=== PATIENT | female | born 1975 | race Caucasian/White ===

== ENCOUNTER 2016-09-04 19:43 | Emergency (ER) | payer BC ==
[2016-09-04] MEDS ORDERED: Sodium Chloride 0.9% 1,000 ML IV ONE (20:48)
[2016-09-04 21:33] LABS: CHLORIDE,CL 107 mmol/L (98-110); SODIUM,NA 138 mmol/L (136-146)
[2016-09-04] MEDS ORDERED: Iopamidol 755 MG/ML 50 ML Bottle IV STA (22:40)
[2016-09-04] MEDS ORDERED: Ketorolac 30 MG/ML SDV IVPUSH ONE (23:22)
--- NOTE | 2016-09-04 23:24 | EDM.PDOC ---
ED HPI GENERAL MEDICAL PROBLEM - General Chief Complaint: Flank Pain Stated Complaint: PT RT SIDE HURTING Time Seen by Provider: 09/04/16 20:45 Source of Information: Reports: Patient History Limitations: Reports: No limitations - History of Present Illness INITIAL COMMENTS - FREE TEXT/NARRATIVE: History of present illness: [41-year-old female presenting with complaints of right-sided upper quadrant pain. Patient is worse when she coughs there is no point tenderness consistent with costochondritis. Patient also indicates that she had been working out and had heard and felt a pop and now it has been sporadic intermittent pain. Patient comes in today to be evaluated and worked up secondary to concerns of having something wrong that will cause her problems do to a planned elective procedure coming up in the forthcoming week] Review of systems: As per history of present illness and below otherwise all systems reviewed and negative. Past medical history: As per history of present illness and as reviewed below otherwise noncontributory. Surgical history: As per history of present illness and as reviewed below otherwise noncontributory. Social history: No reported history of drug or alcohol abuse. Family history: As per history of present illness and as reviewed below otherwise noncontributory. Physical exam: HEENT: Atraumatic, normocephalic, pupils reactive, negative for conjunctival pallor or scleral icterus, mucous membranes moist, throat clear, neck supple, nontender, trachea midline. Lungs: Clear to auscultation, breath sounds equal bilaterally, chest nontender. Heart: S1S2, regular, negative for clicks, rubs, or JVD. Abdomen: Soft, nondistended, nontender. Negative for masses or hepatosplenomegaly. Negative for costovertebral tenderness. Pelvis: Stable nontender. Genitourinary: Deferred. Rectal: Deferred. Extremities: Atraumatic, negative for cords or calf pain. Neurovascular unremarkable. Neuro: Awake, alert, oriented. Cranial nerves II through XII unremarkable. Cerebellum unremarkable. Motor and sensory unremarkable throughout. Exam nonfocal. Patient able to indicate some deep pain right under her rib by the for her of her liver without feeling any liver enlargement and or firmness Diagnostics: [CBC, CMP, CT of abdomen with contrast] Therapeutics: [IV fluid] Impression: [Atypical abdominal tenderness] Plan: [Followup with primary care provider he may proceed with your elective procedure with the documentation provided to her provider] Definitive disposition and diagnosis as appropriate pending reevaluation and review of above. - Related Data Allergies Allergy/AdvReac Type Severity Reaction Status Date / Time adhesive tape Allergy Rash Verified 09/04/16 20:10 metformin Allergy Other Verified 09/04/16 20:10 metoclopramide HCl Allergy Anxiety Verified 09/04/16 20:10 [From Reglan] Home Meds: Home Meds Cholecalciferol (Vitamin D3) [Vitamin D3] 1 cap PO BID 02/05/15 [History] Levothyroxine 1 tab PO DAILY 02/05/15 [History] Multivitamin [Multivitamins] 1 tab PO BID 02/05/15 [History] Escitalopram [Lexapro] 10 mg PO DAILY 05/28/15 [History] Insulin Lispro [HumaLOG] 1 dose SQ ASDIRECTED 05/28/15 [History] busPIRone [Buspar] 10 mg PO TID 05/28/15 [History] Amitriptyline [Elavil] 50 mg PO BEDTIME 08/09/16 [History] Cimetidine [Tagamet Hb] 1 tab PO BID 08/09/16 [History] Esomeprazole [NexIUM] 1 cap PO DAILY 08/09/16 [History] Fexofenadine [Chantell] 1 tab PO DAILY 08/09/16 [History] Folic Acid 1 tab PO BID 08/09/16 [History] Lansoprazole [Prevacid] 1 cap PO DAILY 08/09/16 [History] Levomefolate/B6/B12/Algal Oil [Metanx Capsule] 1 cap PO BID 08/09/16 [History] Mg Trisilicate/AlH/NahCO3/AA [Gaviscon 80-14.2 MG] 1 tab PO Q6HR 08/09/16 [ History] Naratriptan HCl [Naratriptan] 1 tab PO ASDIRECTED 08/09/16 [History] Omeprazole Magnesium [Prilosec Otc] 1 tab PO BID 08/09/16 [History] Promethazine HCl 1 tab PO TID 08/09/16 [History] Verapamil HCl [Verapamil Sr] 1 tab PO DAILY 08/09/16 [History] atorvaSTATin [Lipitor] 1 tab PO BEDTIME 08/09/16 [History] tiZANidine [tiZANidine] 1 cap PO TID 08/09/16 [History] Past Medical History - Past Health History Medical/Surgical History: Denies Medical/Surgical History HEENT History: Reports: Impaired vision, Other (see below) Other HEENT History: double vision and blurriness with migraines Cardiovascular History: Reports: None Respiratory History: Reports: None Gastrointestinal History: Reports: None Genitourinary History: Reports: None 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 , Musculoskeletal History: Reports: Other (see below) Other Musculoskeletal History: degenerative disk disease Neurological History: Reports: Migraines Psychiatric History: Reports: Anxiety, Depression Endocrine/Metabolic History: Reports: Diabetes, type II Other Endocrine/Metabolic History: hypothyroidism, has insulin pump Hematologic History: Reports: None Immunologic History: Reports: None Oncologic (Cancer) History: Reports: None Dermatologic History: Reports: None - Infectious Disease History Infectious Disease History: Reports: Chicken pox - Past Surgical History Head Surgeries/Procedures: Reports: None HEENT Surgical History: Reports: Adenoidectomy, Tonsillectomy, Other (see below) Other HEENT Surgeries/Procedures: jaw, right tympanoplasty x2 GI Surgical History: Reports: Appendectomy, Cholecystectomy Other GI Surgeries/Procedures: gastric bypass Female Surgical History: Reports: Other (see below) Other Female Surgeries/Procedures: infertility, ruptured ectopic and miscarriages, last one in July 2015 Other Musculoskeletal Surgeries/Procedures:: fusion c5-c6 & l4 l5 Social & Family History - Family History Family Medical History: Noncontributory HEENT: Reports: None Cardiac: Reports: CAD, Heart failure, Hypertension, PA, Pacemaker Respiratory: Reports: None GI: Reports: None : Reports: None OBGYN: Reports: None Musculoskeletal: Reports: None Neurological: Reports: Migraines Psychiatric: Reports: Anxiety, OCD Endocrine/Metabolic: Reports: Diabetes, type II, Hypoparathyroidism Oncologic: Reports: Breast - Tobacco Use Smoking Status *Q: Never Smoker Used Tobacco, but Quit: No Second Hand Smoke Exposure: No - Caffeine Use Caffeine Use: Reports: Coffee Caffeine Use Comment: 1cup/day - Alcohol Use Days Per Week of Alcohol Use: 1 Number of Drinks Per Day: 4 Total Drinks Per Week: 4 - Recreational Drug Use Recreational Drug Use: No ED ROS GENERAL - Review of Systems Review Of Systems: See Below (See history of present illness) ED EXAM, GENERAL - Physical Exam Exam: See Below (See history of present illness) Course - Vital Signs Last Recorded V/S: Last Vital Signs Temp 35.7 C 09/04/16 20:10 Pulse 83 09/04/16 20:10 Resp 18 09/04/16 20:10 BP 148/84 H 09/04/16 20:10 Pulse Ox 98 09/04/16 20:10 - Orders/Labs/Meds Orders: Active Orders 24 hr Category Date Time Status Abdomen Pelvis w Cont [CT] Stat Exams 09/04/16 21:51 Ordered Labs: Laboratory Tests 09/04/16 09/04/16 Range/Units 21:03 21:03 WBC 7.22 (4.0-11.0) K/uL RBC 4.81 (4.30-5.90) M/uL Hgb 14.6 (12.0-16.0) g/dL Hct 42.8 (36.0-46.0) % MCV 89.0 (80.0-98.0) fL MCH 30.4 (27.0-32.0) pg MCHC 34.1 (31.0-37.0) g/dL RDW Std Deviation 42.2 (28.0-62.0) fl RDW Coeff of Denise 13 (11.0-15.0) % Plt Count 214 (150-400) K/uL MPV 9.70 (7.40-12.00) fL Neut % (Auto) 58.7 (48.0-80.0) % Lymph % (Auto) 29.5 (16.0-40.0) % Bertie % (Auto) 8.4 (0.0-15.0) % Eos % (Auto) 2.8 (0.0-7.0) % Baso % (Auto) 0.6 (0.0-1.5) % Neut # 4.2 (1.4-5.7) K/uL Lymph # 2.1 (0.6-2.4) K/uL Bertie # 0.6 (0.0-0.8) K/uL Eos # 0.2 (0.0-0.7) K/uL Baso # 0.0 (0.0-0.1) K/uL Nucleated RBC % 0.0 /100WBC Nucleated RBCs # 0 K/uL Sodium 138 (136-146) mmol/L Potassium 4.0 (3.5-5.1) mmol/L Chloride 107 (98-110) mmol/L Carbon Dioxide 19 L (21-31) mmol/L BUN 12 (6.0-23.0) mg/dL Creatinine 0.8 (0.6-1.5) mg/dL Est Cr Clr Drug Dosing 15.12 mL/min Estimated GFR (MDRD) > 60.0 ml/min Glucose 190 H (60-110) mg/dL Calcium 9.4 (8.8-10.8) mg/dL Total Bilirubin 0.3 (0.1-1.5) mg/dL AST 19 (5-40) IU/L ALT 23 (8-54) IU/L Alkaline Phosphatase 80 (40-150) Total Protein 7.6 (6.0-8.0) g/dL Albumin 4.2 (3.5-5.0) g/dL Globulin 3.4 (2.0-3.5) g/dL Albumin/Globulin Ratio 1.2 L (1.3-2.8) Meds: Medications Discontinued Medications Generic Name Dose Route Start Last Admin Trade Name Freq PRN Reason Stop Dose Admin Sodium Chloride 1,000 mls @ 999 mls/hr 09/04/16 20:48 09/04/16 21:45 Normal Saline IV 09/04/16 21:48 999 mls/hr STAT ONE Administration Iopamidol 100 ml 09/04/16 22:40 09/04/16 22:41 Isovue-370 (76%) IV 09/04/16 22:41 100 ml ONETIME STA Administration Departure - Departure Time of Disposition: 23:21 Disposition: Home, Self-Care 01 Condition: good Clinical Impression: Abdominal pain Qualifiers: Abdominal location: right upper quadrant Qualified Code(s): R10.11 - Right upper quadrant pain Forms: ED Department Discharge Additional Instructions: The following information is given to patients seen in the emergency department who are being discharged to home. This information is to outline your options for follow-up care. We provide all patients seen in our emergency department with a follow-up referral. The need for follow-up, as well as the timing and circumstances, are variable depending upon the specifics of your emergency department visit. If you don't have a primary care physician on staff, we will provide you with a referral. We always advise you to contact your personal physician following an emergency department visit to inform them of the circumstance of the visit and for follow-up with them and/or the need for any referrals to a consulting specialist. The emergency department will also refer you to a specialist when appropriate. This referral assures that you have the opportunity for follow-up care with a specialist. All of these measure are taken in an effort to provide you with optimal care, which includes your follow-up. Under all circumstances we always encourage you to contact your private physician who remains a resource for coordinating your care. When calling for follow-up care, please make the office aware that this follow-up is from your recent emergency room visit. If for any reason you are refused follow-up, please contact the [facility] Emergency Department at and asked to speak to the emergency department charge nurse. All the PCP 1-2 days There was no apparent problem with your abdomen or pelvis her radiographic studies as cannot rule out any tearing or release of adhesions deep within the abdominal cavity You're being provided a brief run of Tylenol 3 to take at night for the coughing as well as the pain Return to ED as needed as discussed - My Orders Last 24 Hours: My Active Orders 09/04/16 21:51 Abdomen Pelvis w Cont [CT] Stat - Assessment/Plan Last 24 Hours: My Active Orders 09/04/16 21:51 Abdomen Pelvis w Cont [CT] Stat
[2016-09-04 23:52] VITALS: BP 136/75
--- NOTE | 2016-09-05 16:01 | CT ---
EXAM DATE: 09/04/16 PATIENT'S AGE: 41 Patient: ARAM STONE Facility: [place], [place] Site . Site : 1975 Study: CT Abdomen/Pelvis [id number]/27/2017 10:53:08 PM Ordering Physician: Doctor Montalvo Final Report: INDICATION: Right upper abdominal pain. CT ABDOMEN AND PELVIS WITH CONTRAST TECHNIQUE: Multidetector CT imaging was performed through the abdomen and pelvis following intravenous contrast administration using 100 mL Isovue 370. Coronal and sagittal reconstructions were generated. COMPARISON: 08/10/2016 CT abdomen and pelvis. FINDINGS: Lower chest: Minimal bibasilar lung atelectasis or scarring. Liver: Within normal limits. Gallbladder and bile ducts: Status post cholecystectomy, as before. No biliary dilation identified. Pancreas: Unremarkable. Spleen: Normal. Adrenals: No nodules or masses. Kidneys, ureters, and urinary bladder: No renal masses or hydronephrosis. No bladder mass or definite wall thickening. Gastrointestinal tract: Postoperative changes of Lisa-en-Y gastric bypass, as before. Normal caliber bowel without wall thickening. Status post appendectomy. Abdominal wall: Postoperative changes in the anterior abdominal wall, as before. No significant change in diastasis recti with broad-based anterior bulging in the supraumbilical region. Vascular structures: Normal for age. Peritoneum: No free air, abscess, or significant free fluid. Lymph nodes: No pathologically enlarged nodes identified. Reproductive organs: No pelvic masses. Bones: Postoperative changes of anterior spinal fusion at L4-5, as before. IMPRESSION: 1. No acute abnormality identified. No cause for the patient`s symptoms is evident. 2. Multiple nonacute postoperative findings as detailed above. SHIVANI SHEARER MD [employer] Dictated by Dustin Shearer MD @ 09/04/2016 11:04:30 PM Dictated by: Dustin Shearer MD @ 09/04/2016 23:05:59 (Electronic Signature) Report Signed by Proxy and Original Signed Document filed in the Medical Record. [facility]
== END 2016-09-05 00:03 | disposition home or self-care (01) ==
LOC: MW.ED 19:43
DX: R10.11 Right upper quadrant pain (principal); E11.9 Type 2 diabetes mellitus without complications; E03.9 Hypothyroidism, unspecified; Z79.899 Other long term (current) drug therapy; Z79.4 Long term (current) use of insulin; Z90.49 Acquired absence of other specified parts of digestive tract
CPT/HCPCS: 36415; 74177; 80053; 85025; 96361; 96374; 99284; J1885; J7040; Q9967; 99283

== ENCOUNTER → 2016-11-22 | Outpatient (CLI) | payer BC | LOC: MW.CHOBGYN 10:09 | PROVIDERS: ATTEND Advanced Practice Midwife | DX: R10.2 Pelvic and perineal pain (principal); R30.0 Dysuria; N76.0 Acute vaginitis | CPT/HCPCS: 81001; 81025; 87480; 87510; 87660 ==

== ENCOUNTER → 2016-11-27 | Outpatient (CLI) | payer BC | LOC: MW.CHOBGYN 14:08 | PROVIDERS: ATTEND Nurse Practitioner Women's Health | DX: N90.89 Other specified noninflammatory disorders of vulva and perineum (principal); N94.9 Unspecified condition associated with female genital organs and menstrual cycle; R30.0 Dysuria; N92.6 Irregular menstruation, unspecified | CPT/HCPCS: 36415; 81001; 84443; 84703; 85025; 87252; 87254 ==

== ENCOUNTER → 2016-11-28 | Outpatient (CLI) | payer BC ==
--- NOTE | 2016-11-28 16:55 | US ---
EXAMINATION: Transvaginal pelvic ultrasound HISTORY: Unspecified condition COMPARISON: CT dated 09/04/2016 TECHNIQUE: Grayscale, color Doppler and spectral Doppler images obtained transvaginally and transabd ominally. FINDINGS: The uterus is normal in size, contour, and echogenicity without a focal uterine mass. The endometrial stripe thickness measures 7 mm. Small the bony and cysts are noted. Both the left and right ovaries are normal in size, contour, and echogenicity demonstrating normal c olor and spectral Doppler flow. Small ovarian follicles are noted. No adnexal masses. No significant free pelvic fluid. IMPRESSION: Grossly unremarkable pelvic ultrasound.
== END ==
LOC: MW.US 13:43
PROVIDERS: ATTEND Nurse Practitioner Women's Health
DX: N94.9 Unspecified condition associated with female genital organs and menstrual cycle (principal)
CPT/HCPCS: 76830; 76830-26

== ENCOUNTER 2017-02-26 20:14 | Emergency (ER) | payer BC ==
[2017-02-26] MEDS ORDERED: Glucagon,Human Recombinant 1 MG Vial IVPUSH ONE (20:19)
--- NOTE | 2017-02-26 20:27 | EDM.PDOC ---
ED HPI GENERAL MEDICAL PROBLEM - General Stated Complaint: FOOD STUCK THROAT Time Seen by Provider: 02/26/17 20:21 - History of Present Illness INITIAL COMMENTS - FREE TEXT/NARRATIVE: HISTORY AND PHYSICAL: History of present illness: Patient's 41-year-old white female past medical history significant for diabetes hypothyroidism and gastric bypass surgery who presents with a concern of esophageal food bolus in the form of poor tenderloin she's had this problem in the past. This occurred approximately 90 minutes prior to arrival patient is unable to handle any saliva or liquids. Review of systems: As per history of present illness and below otherwise all systems reviewed and negative. Past medical history: As per history of present illness and as reviewed below otherwise noncontributory. Surgical history: As per history of present illness and as reviewed below otherwise noncontributory. Social history: No reported history of drug or alcohol abuse. Family history: As per history of present illness and as reviewed below otherwise noncontributory. Physical exam: HEENT: Atraumatic, normocephalic, pupils reactive, negative for conjunctival pallor or scleral icterus, mucous membranes moist, throat clear, neck supple, nontender, trachea midline. Lungs: Clear to auscultation, breath sounds equal bilaterally, chest nontender. Heart: S1S2, regular, negative for clicks, rubs, or JVD. Abdomen: Soft, nondistended, nontender. Negative for masses or hepatosplenomegaly. Negative for costovertebral tenderness. Pelvis: Stable nontender. Genitourinary: Deferred. Rectal: Deferred. Extremities: Atraumatic, negative for cords or calf pain. Neurovascular unremarkable. Neuro: Awake, alert, oriented, anxious. Cranial nerves II through XII unremarkable. Cerebellum unremarkable. Motor and sensory unremarkable throughout. Exam nonfocal. Diagnostics: CBC CMP chest x-ray PT/INR Therapeutics: IV monitor glucagon 1 mg IV Ativan 1 mg IV Impression: #1 odynophagia probable esophageal food bolus Definitive disposition and diagnosis as appropriate pending reevaluation and review of above. - Related Data Allergies Allergy/AdvReac Type Severity Reaction Status Date / Time adhesive tape Allergy Rash Verified 09/04/16 20:10 metformin Allergy Other Verified 09/04/16 20:10 metoclopramide HCl Allergy Anxiety Verified 09/04/16 20:10 [From Reglan] Home Meds: Home Meds Cholecalciferol (Vitamin D3) [Vitamin D3] 1 cap PO BID 02/05/15 [History] Levothyroxine 1 tab PO DAILY 02/05/15 [History] Multivitamin [Multivitamins] 1 tab PO BID 02/05/15 [History] Escitalopram [Lexapro] 10 mg PO DAILY 05/28/15 [History] Insulin Lispro [HumaLOG] 1 dose SQ ASDIRECTED 05/28/15 [History] busPIRone [Buspar] 10 mg PO TID 05/28/15 [History] Amitriptyline [Elavil] 50 mg PO BEDTIME 08/09/16 [History] Cimetidine [Tagamet Hb] 1 tab PO BID 08/09/16 [History] Esomeprazole [NexIUM] 1 cap PO DAILY 08/09/16 [History] Fexofenadine [Chantell] 1 tab PO DAILY 08/09/16 [History] Folic Acid 1 tab PO BID 08/09/16 [History] Lansoprazole [Prevacid] 1 cap PO DAILY 08/09/16 [History] Levomefolate/B6/B12/Algal Oil [Metanx Capsule] 1 cap PO BID 08/09/16 [History] Mg Trisilicate/AlH/NahCO3/AA [Gaviscon 80-14.2 MG] 1 tab PO Q6HR 08/09/16 [ History] Naratriptan HCl [Naratriptan] 1 tab PO ASDIRECTED 08/09/16 [History] Omeprazole Magnesium [Prilosec Otc] 1 tab PO BID 08/09/16 [History] Promethazine HCl 1 tab PO TID 08/09/16 [History] Verapamil HCl [Verapamil Sr] 1 tab PO DAILY 08/09/16 [History] atorvaSTATin [Lipitor] 1 tab PO BEDTIME 08/09/16 [History] tiZANidine [tiZANidine] 1 cap PO TID 08/09/16 [History] Past Medical History - Past Health History Medical/Surgical History: Denies Medical/Surgical History HEENT History: Reports: Impaired Vision, Other (See Below) Other HEENT History: double vision and blurriness with migraines Cardiovascular History: Reports: None Respiratory History: Reports: None Gastrointestinal History: Reports: None Genitourinary History: Reports: None 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 , Musculoskeletal History: Reports: Other (See Below) Other Musculoskeletal History: degenerative disk disease Neurological History: Reports: Migraines Psychiatric History: Reports: Anxiety, Depression Endocrine/Metabolic History: Reports: Diabetes, Type II Other Endocrine/Metabolic History: hypothyroidism, has insulin pump Hematologic History: Reports: None Immunologic History: Reports: None Oncologic (Cancer) History: Reports: None Dermatologic History: Reports: None - Infectious Disease History Infectious Disease History: Reports: Chicken Pox - Past Surgical History HEENT Surgical History: Reports: Adenoidectomy, Tonsillectomy, Other (See Below) Female Surgical History: Reports: Other (See Below) Social & Family History - Family History Family Medical History: Noncontributory HEENT: Reports: None Cardiac: Reports: CAD, Heart Failure, Hypertension, [place], Pacemaker Respiratory: Reports: None GI: Reports: None : Reports: None OBGYN: Reports: None Musculoskeletal: Reports: None Neurological: Reports: Migraines Psychiatric: Reports: Anxiety, OCD Endocrine/Metabolic: Reports: Diabetes, type II, Hypoparathyroidism Oncologic: Reports: Breast - Tobacco Use Smoking Status *Q: Never Smoker Used Tobacco, but Quit: No Second Hand Smoke Exposure: No - Caffeine Use Caffeine Use: Reports: Coffee Caffeine Use Comment: 1cup/day - Alcohol Use Days Per Week of Alcohol Use: 1 Number of Drinks Per Day: 4 Total Drinks Per Week: 4 - Recreational Drug Use Recreational Drug Use: No ED ROS GENERAL - Review of Systems Review Of Systems: ROS reveals no pertinent complaints other than HPI. ED EXAM, GENERAL - Physical Exam Exam: See Below (See dictation) Course - Vital Signs Text/Narrative:: Gen. surgery was consult in and present in the emergency department during his evaluation patient had resolution and was able to drink a full glass of water or discomfort is gone and she is eager for discharge she will be put on a liquid diet for 2 days and follow-up with general surgery in 1 week for an elective EGD to be done in 1-2 weeks Last Recorded V/S: Last Vital Signs Temp 36.7 C 02/26/17 20:23 Pulse 84 02/26/17 21:00 Resp 19 02/26/17 21:00 BP 130/76 02/26/17 21:00 Pulse Ox 97 02/26/17 21:00 - Orders/Labs/Meds Meds: Medications Discontinued Medications Generic Name Dose Route Start Last Admin Trade Name Jonn PRN Reason Stop Dose Admin Glucagon 1 mg 02/26/17 20:19 02/26/17 20:23 Glucagen IVPUSH 02/26/17 20:20 1 mg ONETIME ONE Administration Lorazepam 1 mg 02/26/17 20:29 02/26/17 20:33 Ativan IVPUSH 02/26/17 20:30 1 mg ONETIME ONE Administration Ondansetron HCl 4 mg 02/26/17 20:50 02/26/17 20:58 Zofran IVPUSH 02/26/17 20:51 4 mg ONETIME ONE Administration Departure - Departure Time of Disposition: 21:32 Disposition: Home, Self-Care 01 Condition: Good Clinical Impression: Odynophagia - Discharge Information Additional Instructions: The following information is given to patients seen in the emergency department who are being discharged to home. This information is to outline your options for follow-up care. We provide all patients seen in our emergency department with a follow-up referral. The need for follow-up, as well as the timing and circumstances, are variable depending upon the specifics of your emergency department visit. If you don't have a primary care physician on staff, we will provide you with a referral. We always advise you to contact your personal physician following an emergency department visit to inform them of the circumstance of the visit and for follow-up with them and/or the need for any referrals to a consulting specialist. The emergency department will also refer you to a specialist when appropriate. This referral assures that you have the opportunity for followup care with a specialist. All of these measure are taken in an effort to provide you with optimal care, which includes your followup. Under all circumstances we always encourage you to contact your private physician who remains a resource for coordinating your care. When calling for followup care, please make the office aware that this follow-up is from your recent emergency room visit. If for any reason you are refused follow-up, please contact the [facility] emergency department at and asked to speak to the emergency department charge nurse. [facility] Professional Building [address] [place] [address], [address] [place] [address] Liquid diet 2 days well up Gen. surgery above 1 week with elective EGD 1- 2 weeks
[2017-02-26] MEDS ORDERED: LORazepam 2 MG/ML MDV IVPUSH ONE (20:29)
[2017-02-26] MEDS ORDERED: Ondansetron 4 MG/2 ML SDV IVPUSH ONE (20:50)
--- NOTE | 2017-02-27 01:27 | CONS ---
DATE OF CONSULTATION: 02/26/2017 DATE OF : 1975 PRIMARY CARE PHYSICIAN: None PCP Consult from Dr. Alaniz. Copy concerning question is food stuck in the throat. HISTORY OF PRESENT ILLNESS: The patient is a 41-year-old lady, has multiple surgeries done in the past and ate a piece of meat stucked in esophagus, and since then, food stuck there, cannot swallow her saliva X 2 hrs, Seek help in the emergency room 2 hours later and got 1 mg of glucagon and still not resolved and Surgery was then consulted. PAST MEDICAL HISTORY: Includes obesity, acid reflux, and diabetic on insulin pump and denied [place], CVA, or hypertension. PAST SURGICAL HISTORY: Gastric bypass x2, laparoscopic Christiano fundoplication, multiple EGDs, tonsillectomy, appendectomy, and gallbladder surgery. ALLERGIES: Please refer nursing for details. MEDICATIONS: Please refer nursing for details. FAMILY HISTORY: Noncontributory. REVIEW OF SYSTEMS: Same as history of present illness. PHYSICAL EXAMINATION: GENERAL: A very pleasant, nice lady, smiled to doctor, in no acute distress. HEENT: Normocephalic and atraumatic. Sclerae anicteric. LUNGS: Clear to auscultation. HEART: Regular rate and rhythm. ABDOMEN: Soft and nondistended. No pulsating, tender midline abdominal structure. Large midline surgical incision with several laparoscopic incision sites and questionable bulging hernia and upper midline incision. Nontender. Bowel sounds in all 4 quadrants. IMPRESSION: Food stuck in the throat. Offered the patient a glass of water. The patient finished it without problem, although slowly and the patient would be alright to send home and on liquid diet for 2 days and gradually advance to solid diet. The patient should have a followup appointment with me and schedule followup EGD in about a week or two weeks. Plan has been discussed with the patient. The patient concurred to proceed as plan. Thank you Dr. Alaniz for the consult. GILDA / HARVINDER /[id number] MEDHAT
[2017-02-27 02:30] VITALS: BP 120/74
== END 2017-02-26 21:50 | disposition home or self-care (01) ==
LOC: MW.ED 20:14
DX: R13.10 Dysphagia, unspecified (principal); F41.9 Anxiety disorder, unspecified; F32.9 Major depressive disorder, single episode, unspecified; E11.9 Type 2 diabetes mellitus without complications; E03.9 Hypothyroidism, unspecified; Z98.890 Other specified postprocedural states; Z79.4 Long term (current) use of insulin; Z79.899 Other long term (current) drug therapy; Z88.8 Allergy status to other drugs, medicaments and biological substances; Z91.048 Other nonmedicinal substance allergy status
CPT/HCPCS: 96374; 96375; 99283; J1610; J2060; J2405; 99282

== ENCOUNTER 2017-05-29 07:24 | Day surgery (SDC) | payer BC ==
[~2017-05-29 07:24] MED LIST: Lactated Ringers 1,000 ML IV SCH
[2017-05-29] MEDS ORDERED: Lidocaine 2% 5 ML SDV ONE (07:27)
[2017-05-29] MEDS ORDERED: fentaNYL 100 MCG/2 ML SDV ONE (07:27)
[2017-05-29] MEDS ORDERED: Propofol 200 MG/20 ML SDV ONE ×2 (07:27→10:35)
--- NOTE | 2017-05-29 08:00 | PCM.PREANE ---
Preanesthetic Assessment - Anesthesia/Transfusion/Family Hx Anesthesia History: Prior Anesthesia Without Reaction Other Type of Anesthesia Reaction Comment: "MAC anesthesia does not put me to sleep enough" Family History of Anesthesia Reaction: No Transfusion History: No Prior Transfusion(s) Intubation History: Unknown - Review of Systems General: No Symptoms Pulmonary: No Symptoms Cardiovascular: No Symptoms Gastrointestinal: Abdominal Pain, Difficulty Swallowing Neurological: No Symptoms Other: Reports: None - Physical Assessment NPO Status Date: 05/28/17 NPO Status Time: 22:00 O2 Sat by Pulse Oximetry: 96 Respiratory Rate: 16 Vital Signs: Last Vital Signs Temp 36.3 C 05/29/17 07:41 Pulse 82 05/29/17 07:41 Resp 16 05/29/17 07:41 BP 143/78 H 05/29/17 07:41 Pulse Ox 96 05/29/17 07:41 Height: 1.78 m Weight: 102.965 kg ASA Class: 3 Mental Status: Alert & Oriented x3 Airway Class: Mallampati = 2 Dentition: Reports: Normal Dentition (reteiner at the bottom) Thyro-Mental Finger Breadths: 3 Mouth Opening Finger Breadths: 3 ROM/Head Extension: Full Lungs: Clear to Auscultation, Normal Respiratory Effort Cardiovascular: Regular Rate, Regular Rhythm - Lab Values: Laboratory Last Values Urine HCG, Qual NEGATIVE (NEGATIVE) 05/29/17 07:26 - Allergies Allergies/Adverse Reactions: Allergies Allergy/AdvReac Type Severity Reaction Status Date / Time adhesive tape Allergy Rash Verified 09/04/16 20:10 metformin Allergy Other Verified 09/04/16 20:10 metoclopramide HCl Allergy Anxiety Verified 09/04/16 20:10 [From Reglan] - Blood Blood Available: No - Anesthesia Plan Pre-Op Medication Ordered: None - Acknowledgements Anesthesia Type Planned: MAC Pt an Appropriate Candidate for the Planned Anesthesia: Yes Alternatives and Risks of Anesthesia Discussed w Pt/Guardian: Yes Pt/Guardian Understands and Agrees with Anesthesia Plan: Yes PreAnesthesia Questionnaire - Past Health History Medical/Surgical History: Denies Medical/Surgical History HEENT History: Reports: Other (See Below) Other HEENT History: double vision and blurriness with migraines Cardiovascular History: Reports: None Respiratory History: Reports: None Gastrointestinal History: Reports: GERD, Other (See Below) Other Gastrointestinal History: hx barretts esophagus Genitourinary History: Reports: None HOME ORGANIZER History: Reports: Ectopic , , Spontaneous Musculoskeletal History: Reports: Back Pain, Chronic, Neck Pain, Chronic, Other (See Below) Other Musculoskeletal History: degenerative disk disease Neurological History: Reports: Migraines Psychiatric History: Reports: Anxiety, Depression Endocrine/Metabolic History: Reports: Diabetes, Type II, Hypothyroidism, Obesity /BMI 30+ Other Endocrine/Metabolic History: hypothyroidism, type II diabetic has insulin pump Hematologic History: Reports: None Immunologic History: Reports: None Oncologic (Cancer) History: Reports: None Dermatologic History: Reports: None - Infectious Disease History Infectious Disease History: Reports: Chicken Pox - Past Surgical History Head Surgeries/Procedures: Reports: None HEENT Surgical History: Reports: Adenoidectomy, Tonsillectomy, Other (See Below) Other HEENT Surgeries/Procedures: jaw, right tympanoplasty x2 GI Surgical History: Reports: Appendectomy, Bariatric Procedure (x2), Cholecystectomy, Colonoscopy, EGD, Other (See Below) (Christiano fundoplication) Other GI Surgeries/Procedures: gastric bypass Female Surgical History: Reports: Other (See Below) Other Female Surgeries/Procedures: infertility, ruptured ectopic and miscarriages, last one in July 2015 Neurological Surgical History: Reports: Lumbar Spine Other Musculoskeletal Surgeries/Procedures:: fusion c5-c6 & l4 l5 - SUBSTANCE USE Smoking Status *Q: Former Smoker Second Hand Smoke Exposure: No Days Per Week of Alcohol Use: 1 Number of Drinks Per Day: 4 Total Drinks Per Week: 4 Recreational Drug Use History: No - HOME MEDS Home Medications: Home Meds Cholecalciferol (Vitamin D3) [Vitamin D3] 2,000 units PO BID 02/05/15 [History] Levothyroxine 175 mg PO BEDTIME 02/05/15 [History] Multivitamin [Multivitamins] 2 tab PO DAILY 02/05/15 [History] Escitalopram [Lexapro] 30 mg PO DAILY 05/28/15 [History] busPIRone [Buspar] 15 mg PO TID 05/28/15 [History] Amitriptyline [Elavil] 50 mg PO BEDTIME 08/09/16 [History] Folic Acid 800 mcg PO BID 08/09/16 [History] Naratriptan HCl [Naratriptan] 1 tab PO ASDIRECTED PRN 08/09/16 [History] Promethazine HCl 1 - 2 tab PO TID PRN 08/09/16 [History] Verapamil HCl [Verapamil Sr] 120 tab PO DAILY 08/09/16 [History] atorvaSTATin [Lipitor] 20 mg PO BEDTIME 08/09/16 [History] tiZANidine [tiZANidine] 6 mg PO TID 08/09/16 [History] Fexofenadine HCl [Aller-Ease] 180 mg PO DAILY 05/24/17 [History] Insulin Aspart [NovoLOG] 1 injection .ROUTE ASDIRECTED 05/24/17 [History] Ondansetron [Zofran ODT] 4 mg SL ASDIRECTED PRN 05/24/17 [History] hydrOXYzine Pamoate [Hydroxyzine Pamoate] 25 mg PO ASDIRECTED PRN 05/24/17 [ History] - CURRENT (IN HOUSE) MEDS Current Meds: Current Medications Lactated Ringer's (Ringers, Lactated) 1,000 mls @ 125 mls/hr IV ASDIRECTED [facility] Last Admin: 05/29/17 07:44 Dose: 125 mls/hr Discontinued Medications Fentanyl (Sublimaze) Confirm Administered Dose 100 mcg .ROUTE .STK-MED ONE Stop: 05/29/17 07:28 Lactated Ringer's (Ringers, Lactated) 1,000 mls @ 125 mls/hr IV ASDIRECTED [facility] Lidocaine (Xylocaine-Mpf 2%) Confirm Administered Dose 5 ml .ROUTE .STK-MED ONE Stop: 05/29/17 07:28 Propofol (Diprivan 20 Ml) Confirm Administered Dose 400 mg .ROUTE .STK-MED ONE Stop: 05/29/17 07:28
[2017-05-29] MEDS ORDERED: Midazolam 1 MG/ML 2 ML SDV ONE (10:12)
--- NOTE | 2017-05-29 10:59 | PCM.OPNOTE ---
- General Post-Op/Procedure Note Date of Surgery/Procedure: 05/29/17 Operative Procedure(s): egd w bx. colonoscopy w random bx Findings: see dict [id number] Pre Op Diagnosis: abd pain, dysphagia Post-Op Diagnosis: Same Anesthesia Technique: Moderate Sedation Primary Surgeon: Marlon Matthews Pathology: egd bx and random colon bx Complications: None Condition: Good
[2017-05-29 11:31] VITALS: BP 108/60
--- NOTE | 2017-05-29 11:38 | OR ---
SURGEON: Marlon Matthews MD DATE OF PROCEDURE: 05/29/2017 PREOPERATIVE DIAGNOSES: Abdominal pain, dysphagia, and black tarry stool. POSTOPERATIVE DIAGNOSES: Esophagogastroduodenoscopy diagnosis is mild gastritis and colonoscopy diagnosis is hemorrhoids. PROCEDURE PERFORMED: Esophagogastroduodenoscopy with biopsy and colonoscopy with random biopsy. EGD FINDINGS: 1. The patient is easily sedated with INTERNAL MEDICINE NURSE and Diprivan. The patient is soundly snoring. 2. Oropharynx and proximal esophagus are free of disease. No inflammation, stricture, diverticulum, ulcer. Distal esophagus at GE junction at 40, has very little salmon-color change, very mild, almost none acid reflux. The stomach pouch from gastric bypass does not have food or bile, very mild inflammation, mild gastritis, and rugae is normal in appearance. Anastomosis is wide open. 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 PROCEDURE IN DETAIL: The patient was taken to the endoscopy room and gave adequate sedation. A well- lubricated Olympus, EGD scope was gently inserted through the oropharynx, down the esophagus into the stomach pouch and no stricture, inflammation, or ulceration encountered and GE junction at 40, has very mild salmon-color change, suggest very mild to minimal acid reflux and do not see katja inflammation like used to be seen in Ozuna esophagitis, but anyway the patient carry a diagnosis of Ozuna's. Stomach has no bile, blood, food, and anastomosis is wide open. Biopsy done at the stomach, biopsy done at four-quadrant does, and biopsy done at the GE junction at 40, and sucked out the air while scope pulling out. PROCEDURE DETAIL: The patient was taken to the endoscopy room. A time out was called, patient identified, and procedure identified. Diprivan was then administrated. Patient went from awake to sleep, hearing doctor talking or door closing is normal. Perineum inspection and digital examination were then performed. A well-lubricated colonoscope was gently inserted through the rectum, advanced past the rectosigmoid junction, the descending colon, splenic flexure, transverse colon, hepatic flexure, ascending colon, arrived to the cecum. Cecum was identified as dictated in the finding. Then the scope was carefully withdrawn while attention was paid to the mucosal surface for any abnormality. Air will be sucked out during the scope withdrawal. At the rectum, retroflexed to examine any rectal diseases, fistula or hemorrhoids. Patient tolerated procedure well. There were no intraoperative complications, and Dr. Matthews was present throughout the whole procedure. Random biopsy was performed for abdominal pain. COLONOSCOPY FINDINGS: 1. The patient is easily sedated with INTERNAL MEDICINE NURSE and Diprivan. The patient is soundly snoring. 2. Bowel prep is average with moderate amount of liquid stool. No semi-formed stool. Colon was rather redundant at the sigmoid requiring several maneuvers in order to go all the way to the cecum. Cecum indicated by ileocecal fold, one-to-one indentation, and appendiceal orifice. Light immittance is not observed and with sometimes require an irrigation in order to see the mucosa while the scope pulling out. The patient does not have diverticulosis, polyp, mass, growth, inflammation, stricture, ulceration, bleeding, or AV malformation. Random biopsy was done for abdominal pain. The patient does have mild internal hemorrhoids and no external hemorrhoids. The patient would benefit from repeat colonoscopy in 10 years from today or if biopsy returns abnormal or if clinically indicated otherwise. As always, thank you for the kind referral. GILDA BLANTON /[id number] MEDHAT
== END 2017-05-29 11:30 | disposition home or self-care (01) ==
LOC: MW.SDS 07:24
PROVIDERS: ATTEND Surgery
DX: K20.9 Esophagitis, unspecified (principal); K29.70 Gastritis, unspecified, without bleeding; K64.8 Other hemorrhoids; F41.8 Other specified anxiety disorders; E11.9 Type 2 diabetes mellitus without complications; K21.9 Gastro-esophageal reflux disease without esophagitis; I10 Essential (primary) hypertension; E03.9 Hypothyroidism, unspecified; E66.01 Morbid (severe) obesity due to excess calories; Z98.890 Other specified postprocedural states; Z88.8 Allergy status to other drugs, medicaments and biological substances; Z91.09 Other allergy status, other than to drugs and biological substances; Z79.4 Long term (current) use of insulin; Z79.899 Other long term (current) drug therapy; Z90.49 Acquired absence of other specified parts of digestive tract; Z98.84 Bariatric surgery status; Z87.891 Personal history of nicotine dependence
CPT/HCPCS: 43239; 45380; 81025; 88305; J2250; J3010; J7120; 00740; J2704

== ENCOUNTER 2017-08-06 09:52 | Emergency (ER) | payer BC ==
[2017-08-06] MEDS ORDERED: Ondansetron 4 MG/2 ML SDV IVPUSH ONE (10:42)
[2017-08-06] MEDS ORDERED: Ketorolac 30 MG/ML SDV IVPUSH ONE (10:42)
--- NOTE | 2017-08-06 10:52 | EDM.PDOC ---
ED HPI GENERAL MEDICAL PROBLEM - General Chief Complaint: Upper Extremity Injury/Pain Stated Complaint: L ARM PAIN Time Seen by Provider: 08/06/17 10:27 Source of Information: Reports: Patient History Limitations: Reports: No Limitations - History of Present Illness INITIAL COMMENTS - FREE TEXT/NARRATIVE: HISTORY AND PHYSICAL: History of present illness: Patient is a 42-year-old female who presents to the emergency room today with complaints of left arm pain, nausea and dizziness. States yesterday she started to have numbness and tingling and shooting pain to her left arm with movement. She did have a cervical fusion in 2011, but since that time has had no neck or arm discomfort. She states that the pain she is experiencing now is similar to the pain she did have prior to her neck surgery. She did contact her primary care provider and Dr. Camara who started her to come to the emergency room. Patient reports that when she moves the left shoulder or at the elbow it sends shooting pain which starts at the upper deltoid down the bicep into her hand. Reports the pain is so "unbearable" that is causing her to have nausea and dizziness. Denies any recent falls, trauma or injury. Denies any chest pain, shortness of breath, fever or chills. Denies any abdominal pain, vomiting or diarrhea. Review of systems: As per history of present illness and below otherwise all systems reviewed and negative. Past medical history: As per history of present illness and as reviewed below otherwise noncontributory. Surgical history: As per history of present illness and as reviewed below otherwise noncontributory. Social history: No reported history of drug or alcohol abuse. Family history: As per history of present illness and as reviewed below otherwise noncontributory. Physical exam: Gen.: Well-developed and well-nourished 42-year-old female. Alert and oriented. Nontoxic appearing and in no acute distress. HEENT: Atraumatic, normocephalic, pupils reactive, negative for conjunctival pallor or scleral icterus, mucous membranes moist, throat clear, neck supple, nontender, trachea midline. Lungs: Clear to auscultation, breath sounds equal bilaterally, chest nontender. Heart: S1S2, regular, negative for clicks, rubs, or JVD. Abdomen: Soft, nondistended, nontender. Negative for masses or hepatosplenomegaly. Negative for costovertebral tenderness. Pelvis: Stable nontender. Genitourinary: Deferred. Rectal: Deferred. C-spine/Back: No pinpoint vertebral tenderness upon palpation. No crepitus, step -offs or obvious deformities. Steady and even gait. Denies any numbness or tingling to her distal lower extremities. Extremities: Atraumatic, moves all per self, strong radial and pedal pulses bilat. Limited range of motion to the left shoulder (pain with lifting above 60 degrees). No motor weakness. She is negative for cords or calf pain. Neurovascular unremarkable. Neuro: Awake, alert, oriented. Cranial nerves II through XII unremarkable. Cerebellum unremarkable. Motor and sensory unremarkable throughout. Exam nonfocal. Patient is adamant that an x-ray will "not do any good". We did discuss doing a CT and what that would show. Today she would like a CT of her cervical spine. She is aware that an MRI will be likely needed in the future. She agrees to have close follow-up with her primary care or Dr. Camara within the week to come. Lab work is unremarkable. Ct shows C5 and 6 surgical fusion. No suspicious finding for any herniated or stenosis. Xray is unremarkable. Unable to take NSAIDs due to her gastric bypass. Will prescribe a short course of tramadol. Medrol Dosepak will also be prescribed.We discussed how the steriods may affect her blood sugars, to continue to monitor those. Discharged her to follow-up with her primary care provider or Dr. abdiel Saeed for further evaluation. She voices understanding and is agreeable to plan of care. She denies any further questions at this time. Diagnostics: CBC, CMP, troponin, EKG, left shoulder x-ray, CT c-spine Therapeutics: Oral, Zofran Impression: Cervical Radiculopathy Plan: 1. Please take the medications as prescribed. Medrol Dosepak as a steroid which will help with inflammation which may be affecting the nerves. Tramadol has been prescribed as you are unable to take NSAIDs. This medication may cause drowsiness so reserve it for evening/nighttime use. During the day he may use Tylenol. Gentle heat to the area. 2. Please avoid any provoking activities. May use the sling for comfort. 3. Follow-up with your primary caregiver or Dr. Camara for further evaluation as it may warrant an MRI. Return to the ED as needed and as discussed. Definitive disposition and diagnosis as appropriate pending reevaluation and review of above. Duration: Day(s): Location: Reports: Lower Extremity, Left Left Arm Pain Score (Numeric/FACES): 7 - Related Data Allergies Allergy/AdvReac Type Severity Reaction Status Date / Time adhesive tape Allergy Rash Verified 08/06/17 10:18 metformin Allergy Other Verified 08/06/17 10:18 metoclopramide HCl Allergy Anxiety Verified 08/06/17 10:18 [From Reglan] Home Meds: Home Meds Levothyroxine 175 mcg PO ACBREAKFAST 02/05/15 [History] Escitalopram [Lexapro] 30 mg PO DAILY 05/28/15 [History] busPIRone [Buspar] 15 mg PO TID 05/28/15 [History] Amitriptyline [Elavil] 50 mg PO BEDTIME 08/09/16 [History] Verapamil HCl [Verapamil Sr] 120 mg PO WITHBREAKFAST 08/09/16 [History] tiZANidine 6 mg PO TID PRN 08/09/16 [History] Insulin Aspart [NovoLOG] 40 - 50 units SUBCUT ASDIRECTED 05/24/17 [History] hydrOXYzine Pamoate [Hydroxyzine Pamoate] 25 mg PO QID PRN 05/24/17 [History] Past Medical History - Past Health History Medical/Surgical History: Denies Medical/Surgical History HEENT History: Reports: Other (See Below) Other HEENT History: double vision and blurriness with migraines Cardiovascular History: Reports: None Respiratory History: Reports: None Gastrointestinal History: Reports: GERD, Other (See Below) Other Gastrointestinal History: hx barretts esophagus Genitourinary History: Reports: None 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: Ectopic , , Spontaneous Musculoskeletal History: Reports: Back Pain, Chronic, Neck Pain, Chronic, Other (See Below) Other Musculoskeletal History: degenerative disk disease Neurological History: Reports: Migraines Psychiatric History: Reports: Anxiety, Depression Endocrine/Metabolic History: Reports: Diabetes, Type II, Hypothyroidism, Obesity /BMI 30+ Other Endocrine/Metabolic History: hypothyroidism, type II diabetic has insulin pump Hematologic History: Reports: None Immunologic History: Reports: None Oncologic (Cancer) History: Reports: None Dermatologic History: Reports: None - Infectious Disease History Infectious Disease History: Reports: Chicken Pox - Past Surgical History Head Surgeries/Procedures: Reports: None HEENT Surgical History: Reports: Adenoidectomy, Tonsillectomy, Other (See Below) Other HEENT Surgeries/Procedures: jaw, right tympanoplasty x2 GI Surgical History: Reports: Appendectomy, Bariatric Procedure, Cholecystectomy , Colonoscopy, EGD, Other (See Below) Other GI Surgeries/Procedures: gastric bypass Female Surgical History: Reports: Other (See Below) Other Female Surgeries/Procedures: infertility, ruptured ectopic and miscarriages, last one in July 2015 Neurological Surgical History: Reports: Lumbar Spine Other Musculoskeletal Surgeries/Procedures:: fusion c5-c6 & l4 l5 Social & Family History - Family History Family Medical History: Noncontributory HEENT: Reports: None Cardiac: Reports: CAD, Heart Failure, Hypertension, [place], Pacemaker Respiratory: Reports: None GI: Reports: None : Reports: None OBGYN: Reports: None Musculoskeletal: Reports: None Neurological: Reports: Migraines Psychiatric: Reports: Anxiety, OCD Endocrine/Metabolic: Reports: Diabetes, type II, Hypoparathyroidism Oncologic: Reports: Breast - Tobacco Use Smoking Status *Q: Never Smoker Years of Tobacco use: 5 Packs/Tins Daily: 0.5 Used Tobacco, but Quit: Yes Month Tobacco Last Used: quit 4 yrs ago Second Hand Smoke Exposure: No - Caffeine Use Caffeine Use: Reports: Coffee Caffeine Use Comment: 1cup/day - Alcohol Use Days Per Week of Alcohol Use: 1 Number of Drinks Per Day: 4 Total Drinks Per Week: 4 - Recreational Drug Use Recreational Drug Use: No Drug Use in Last 12 Months: No Review of Systems - Review of Systems Review Of Systems: ROS reveals no pertinent complaints other than HPI. ED EXAM, GENERAL - Physical Exam Exam: See Below (See dictation) EKG INTERPRETATION EKG Date: 08/06/17 Time: 10:45 Rhythm: NSR Course - Vital Signs Last Recorded V/S: Last Vital Signs Temp 98.2 F 08/06/17 10:15 Pulse 78 08/06/17 10:15 Resp 18 08/06/17 10:15 BP 144/93 H 08/06/17 10:15 Pulse Ox 96 08/06/17 10:15 - Orders/Labs/Meds Orders: Active Orders 24 hr Category Date Time Status EKG Documentation Completion [RC] STAT Care 08/06/17 10:42 Active Shoulder Comp Lt [CR] Stat Exams 08/06/17 10:52 Taken DME for Discharge [COMM] Stat Oth 08/06/17 12:33 Ordered Labs: Laboratory Tests 08/06/17 08/06/17 08/06/17 Range/Units 10:50 10:50 11:00 WBC 5.53 (4.0-11.0) K/uL RBC 4.64 (4.30-5.90) M/uL Hgb 14.7 (12.0-16.0) g/dL Hct 41.5 (36.0-46.0) % MCV 89.4 (80.0-98.0) fL MCH 31.7 (27.0-32.0) pg MCHC 35.4 (31.0-37.0) g/dL RDW Std Deviation 40.8 (28.0-62.0) fl RDW Coeff of Denise 13 (11.0-15.0) % Plt Count 224 (150-400) K/uL MPV 9.30 (7.40-12.00) fL Neut % (Auto) 59.7 (48.0-80.0) % Lymph % (Auto) 30.0 (16.0-40.0) % [place] % (Auto) 6.3 (0.0-15.0) % Eos % (Auto) 3.3 (0.0-7.0) % Baso % (Auto) 0.7 (0.0-1.5) % Neut # (Auto) 3.3 (1.4-5.7) K/uL Lymph # (Auto) 1.7 (0.6-2.4) K/uL [place] # (Auto) 0.4 (0.0-0.8) K/uL Eos # (Auto) 0.2 (0.0-0.7) K/uL Baso # (Auto) 0.0 (0.0-0.1) K/uL Nucleated RBC % 0.0 /100WBC Nucleated RBCs # 0 K/uL Sodium 136 (136-146) mmol/L Potassium 4.0 (3.5-5.1) mmol/L Chloride 102 (98-110) mmol/L Carbon Dioxide 24 (21-31) mmol/L BUN 9 (6.0-23.0) mg/dL Creatinine 0.8 (0.6-1.5) mg/dL Est Cr Clr Drug Dosing 93.78 mL/min Estimated GFR (MDRD) > 60.0 ml/min Glucose 188 H (60-110) mg/dL Calcium 9.4 (8.8-10.8) mg/dL Total Bilirubin 0.6 (0.1-1.5) mg/dL AST 21 (5-40) IU/L ALT 26 (8-54) IU/L Alkaline Phosphatase 74 (40-150) Troponin I < 0.10 (0.0-0.29) NG/ML Total Protein 6.7 (6.0-8.0) g/dL Albumin 3.9 (3.5-5.0) g/dL Globulin 2.8 (2.0-3.5) g/dL Albumin/Globulin Ratio 1.4 (1.3-2.8) Urine HCG, Qual NEGATIVE (NEGATIVE) Meds: Medications Discontinued Medications Generic Name Dose Route Start Last Admin Trade Name Freq PRN Reason Stop Dose Admin Ketorolac Tromethamine 30 mg 08/06/17 10:42 08/06/17 10:56 Toradol IVPUSH 08/06/17 10:43 30 mg ONETIME ONE Administration Ondansetron HCl 4 mg 08/06/17 10:42 08/06/17 10:56 Zofran IVPUSH 08/06/17 10:43 4 mg ONETIME ONE Administration Departure - Departure Time of Disposition: 12:18 Disposition: Home, Self-Care 01 Clinical Impression: Cervical radiculopathy - Discharge Information Referrals: Lesa Shrestha DO [Primary Care Provider] - Forms: ED Department Discharge Additional Instructions: My general discharge The following information is given to patients seen in the emergency department who are being discharged to home. This information is to outline your options for follow-up care. We provide all patients seen in our emergency department with a follow-up referral. The need for follow-up, as well as the timing and circumstances, are variable depending upon the specifics of your emergency department visit. If you don't have a primary care physician on staff, we will provide you with a referral. We always advise you to contact your personal physician following an emergency department visit to inform them of the circumstance of the visit and for follow-up with them and/or the need for any referrals to a consulting specialist. The emergency department will also refer you to a specialist when appropriate. This referral assures that you have the opportunity for follow-up care with a specialist. All of these measure are taken in an effort to provide you with optimal care, which includes your follow-up. Under all circumstances we always encourage you to contact your private physician who remains a resource for coordinating your care. When calling for follow-up care, please make the office aware that this follow-up is from your recent emergency room visit. If for any reason you are refused follow-up, please contact the Emergency Department at and asked to speak to the emergency department charge nurse. Primary Care [address] [place] [id number] 1. Please take the medications as prescribed. Medrol Dosepak as a steroid which will help with inflammation which may be affecting the nerves. Tramadol has been prescribed as you are unable to take NSAIDs. This medication may cause drowsiness so reserve it for evening/nighttime use. During the day he may use Tylenol. Gentle heat to the area. 2. Please avoid any provoking activities. May use the sling for comfort. 3. Follow-up with your primary caregiver or Dr. Camara for further evaluation as it may warrant an MRI. Return to the ED as needed and as discussed. - My Orders Last 24 Hours: My Active Orders 08/06/17 10:42 EKG Documentation Completion [RC] STAT 08/06/17 10:52 Shoulder Comp Lt [CR] Stat 08/06/17 12:33 DME for Discharge [COMM] Stat - Assessment/Plan Last 24 Hours: My Active Orders 08/06/17 10:42 EKG Documentation Completion [RC] STAT 08/06/17 10:52 Shoulder Comp Lt [CR] Stat 08/06/17 12:33 DME for Discharge [COMM] Stat
[2017-08-06 11:31] LABS: CHLORIDE,CL 102 mmol/L (98-110); SODIUM,NA 136 mmol/L (136-146)
--- NOTE | 2017-08-06 12:14 | CT ---
CT scan of the cervical spine Clinical history: Cervical spine pain radiating to left arm and history of prior surgery Comparison: Prior MRI scan July 13, 2016 Findings: There is been cervical fusion performed with anterior screw plate and disc prosthesis place ment at C5-6. The vertebral bodies align normally. The craniocervical junction is normal. C2-3 no abnormality is identified. At C3-4 no abnormality is identified. At C4-5 no abnormality is identified. At C5-6 the disc is fused with the prosthesis centrally. No central canal stenosis or lateral foramin al stenosis is identified. At C6-7 no abnormality is identified. At C7-T1 no abnormality is identified. Impression: C5-6 surgical fusion. No suspicious finding for herniated disc or stenosis. No lateralizi ng apparent cause for patient's pain
[2017-08-06 12:52] VITALS: BP 115/67
--- NOTE | 2017-08-08 08:21 | CR ---
Left shoulder Clinical history: Pain Comparison: None Findings: The humeral head articulates normally with the glenoid. There is no fracture subluxation or periarticular calcification. Impression: Normal shoulder
== END 2017-08-06 12:39 | disposition home or self-care (01) ==
LOC: MW.ED 09:52
DX: M54.12 Radiculopathy, cervical region (principal); E11.9 Type 2 diabetes mellitus without complications; E03.9 Hypothyroidism, unspecified; Z87.891 Personal history of nicotine dependence; Z88.8 Allergy status to other drugs, medicaments and biological substances; Z79.899 Other long term (current) drug therapy; Z79.4 Long term (current) use of insulin
CPT/HCPCS: 36415; 72125; 73030; 80053; 81025; 84484; 85025; 93005; 96374; 96375; 99284; A4566; J1885; J2405

== ENCOUNTER 2018-03-26 20:50 | Emergency (ER) | payer BC ==
--- NOTE | 2018-03-26 21:21 | EDM.PDOC ---
ED HPI GENERAL MEDICAL PROBLEM - General Chief Complaint: Neuro Symptoms/Deficits Stated Complaint: PT HAS NUMBNESS IN RT HAND Time Seen by Provider: 03/26/18 21:21 Source of Information: Reports: Patient History Limitations: Reports: No Limitations - History of Present Illness INITIAL COMMENTS - FREE TEXT/NARRATIVE: HISTORY AND PHYSICAL: History of present illness: Patient is a 42-year-old female here with complaint of numbness of her right hand. She states she has a tendonitis of her shoulder that she is seeing physical therapy for. She reports that yesterday she started having some tingling in her right thumb, pointer, and middle fingers. She states the physical therapist was doing some maneuvers on her neck and when she tipped her head back and pressed down she got a pain down her arm and worsening tingling in the hand. She states that today she started having numbness in the palm and into those 3 fingers as well as feeling some weakness in the hand. She has pain in the right shoulder which is not new. She reports she is having some pain on the right side of the chest just under the breast which started today. She denies any cough, shortness of breath, nausea, diaphoresis, left sided chest, arm or jaw pain. She has a history of fusion of C4-5 and states it started with numbness. She does have a follow up with Dr. Mai in 2 days. Patient also notes that she is having mild lower abdominal cramping and is 1 week late for her period. She is concerned about having an ectopic as she has a history of this. She is requesting a test today but declines further work up regarding pelvic cramping. Review of systems: As per history of present illness and below otherwise all systems reviewed and negative. Past medical history: As per history of present illness and as reviewed below otherwise noncontributory. Surgical history: As per history of present illness and as reviewed below otherwise noncontributory. Social history: No reported history of drug or alcohol abuse. Family history: As per history of present illness and as reviewed below otherwise noncontributory. Physical exam: General: Patient sitting comfortably in no acute distress and nontoxic appearing HEENT: Atraumatic, normocephalic, pupils reactive, negative for conjunctival pallor or scleral icterus, mucous membranes moist, throat clear, neck supple, nontender, trachea midline. No meningeal signs. Lungs: Clear to auscultation, breath sounds equal bilaterally, mild tenderness to palpation of the right lateral chest. Heart: S1S2, regular, negative for clicks, rubs, or overt murmur. Abdomen: Soft, nondistended, nontender. Negative for masses or hepatosplenomegaly. Negative for costovertebral tenderness. Pelvis: Stable nontender. Genitourinary: Deferred. Rectal: Deferred. Extremities: Positive tinel's sign on the right. [employer] strength 4/5 on right. Atraumatic, negative for cords or calf pain. Neurovascular unremarkable. Neuro: Awake, alert, oriented. Cranial nerves II through XII unremarkable. Cerebellum unremarkable. Motor and sensory unremarkable throughout. Exam nonfocal. Notes: Diagnostics: Cervical x-ray Chest x-ray urine hcg Therapeutics: None Prescriptions: Discussed oral steroid which patient declined. Impression: Right arm parasthesias, chest wall pain Plan: 1. Motrin as needed for pain 2. Follow up with orthopedic provider or primary care provider 3. Return to ED as needed as discussed Definitive disposition and diagnosis as appropriate pending reevaluation and review of above. Right ribs Pain Score (Numeric/FACES): 2 - Related Data Allergies Allergy/AdvReac Type Severity Reaction Status Date / Time adhesive tape Allergy Rash Verified 03/26/18 21:02 metformin Allergy Other Verified 03/26/18 21:02 metoclopramide HCl Allergy Anxiety Verified 03/26/18 21:02 [From Reglan] Home Meds: Home Meds Escitalopram [Lexapro] 30 mg PO DAILY 05/28/15 [History] busPIRone [Buspar] 15 mg PO TID 05/28/15 [History] Amitriptyline [Elavil] 50 mg PO BEDTIME 08/09/16 [History] Verapamil HCl [Verapamil Sr] 120 mg PO WITHBREAKFAST 08/09/16 [History] tiZANidine 6 mg PO TID PRN 08/09/16 [History] Insulin Aspart [NovoLOG] 40 - 50 units SUBCUT ASDIRECTED 05/24/17 [History] hydrOXYzine pamoate [Hydroxyzine Pamoate] 25 mg PO QID PRN 05/24/17 [History] Cholecalciferol (Vitamin D3) [Vitamin D3] 50 mcg PO DAILY 03/26/18 [History] Levothyroxine Sodium [Synthroid] 0.15 mg PO DAILY 03/26/18 [History] Multivitamin [Multi-Day Vitamins] 1 tab PO DAILY 03/26/18 [History] Past Medical History - Past Health History Medical/Surgical History: Denies Medical/Surgical History HEENT History: Reports: Other (See Below) Other HEENT History: double vision with high blood sugars and migraines and blurriness with migraines Cardiovascular History: Reports: None Respiratory History: Reports: None Gastrointestinal History: Reports: GERD, Other (See Below) Other Gastrointestinal History: hx barretts esophagus Genitourinary History: Reports: None, Diabetic Nephropathy, Other (See Below) Other Genitourinary History: Interstitial cystitis- stable 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: Ectopic , , Spontaneous Musculoskeletal History: Reports: Back Pain, Chronic, Neck Pain, Chronic, Other (See Below) Other Musculoskeletal History: degenerative disk disease Neurological History: Reports: Migraines Psychiatric History: Reports: Anxiety, Depression Endocrine/Metabolic History: Reports: Diabetes, Type II, Hypothyroidism, Obesity /BMI 30+ Other Endocrine/Metabolic History: hypothyroidism, type II diabetic has insulin pump Hematologic History: Reports: B12 Deficiency Other Hematologic History: B12 deficiency following gastric bypass, controlled with multi-vitamins Immunologic History: Reports: None Oncologic (Cancer) History: Reports: None Dermatologic History: Reports: None - Infectious Disease History Infectious Disease History: Reports: Chicken Pox - Past Surgical History Head Surgeries/Procedures: Reports: None HEENT Surgical History: Reports: Adenoidectomy, Tonsillectomy, Other (See Below) Other HEENT Surgeries/Procedures: jaw, right tympanoplasty x2 GI Surgical History: Reports: Appendectomy, Bariatric Procedure, Cholecystectomy , Colonoscopy, EGD, Other (See Below) Other GI Surgeries/Procedures: gastric bypass. Linx surgery for GERD Female Surgical History: Reports: Other (See Below) Other Female Surgeries/Procedures: infertility, ruptured ectopic and miscarriages, last one in July 2015 Neurological Surgical History: Reports: Lumbar Spine Other Neurological Surgeries/Procedures: c5-c6 fusion Other Musculoskeletal Surgeries/Procedures:: fusion c5-c6 & l4 l5 Social & Family History - Family History Family Medical History: Noncontributory HEENT: Reports: None Cardiac: Reports: CAD, Heart Failure, Hypertension, NE, Pacemaker Respiratory: Reports: None GI: Reports: None : Reports: None OBGYN: Reports: None Musculoskeletal: Reports: None Neurological: Reports: Migraines Psychiatric: Reports: Anxiety, OCD Endocrine/Metabolic: Reports: Diabetes, type II, Hypoparathyroidism Oncologic: Reports: Breast - Caffeine Use Caffeine Use: Reports: Coffee Caffeine Use Comment: 1cup/day ED ROS GENERAL - Review of Systems Review Of Systems: ROS reveals no pertinent complaints other than HPI. ED EXAM, NEURO - Physical Exam Exam: See Below (see dictation) Course - Vital Signs Last Recorded V/S: Last Vital Signs Temp 36.3 C 03/26/18 21:07 Pulse 81 03/26/18 21:07 Resp 16 03/26/18 21:07 BP 165/101 H 03/26/18 21:07 Pulse Ox 97 03/26/18 21:07 - Orders/Labs/Meds Orders: Active Orders 24 hr Category Date Time Status Cervical Spine 2V or 3V [CR] Stat Exams 03/26/18 21:21 Taken Chest 1V Frontal [CR] Stat Exams 03/26/18 21:21 Taken Labs: Laboratory Tests 03/26/18 Range/Units 20:26 Urine HCG, Qual NEGATIVE (NEGATIVE) Departure - Departure Time of Disposition: 22:12 Disposition: Home, Self-Care 01 Condition: Good Clinical Impression: Arm paresthesia, right, Pelvic cramping, Chest wall pain - Discharge Information Referrals: PCP,None [Primary Care Provider] - Forms: ED Department Discharge Additional Instructions: The following information is given to patients seen in the emergency department who are being discharged to home. This information is to outline your options for follow-up care. We provide all patients seen in our emergency department with a follow-up referral. The need for follow-up, as well as the timing and circumstances, are variable depending upon the specifics of your emergency department visit. If you don't have a primary care physician on staff, we will provide you with a referral. We always advise you to contact your personal physician following an emergency department visit to inform them of the circumstance of the visit and for follow-up with them and/or the need for any referrals to a consulting specialist. The emergency department will also refer you to a specialist when appropriate. This referral assures that you have the opportunity for follow-up care with a specialist. All of these measure are taken in an effort to provide you with optimal care, which includes your follow-up. Under all circumstances we always encourage you to contact your private physician who remains a resource for coordinating your care. When calling for follow-up care, please make the office aware that this follow-up is from your recent emergency room visit. If for any reason you are refused follow-up, please contact the [facility] Emergency Department at and asked to speak to the emergency department charge nurse. [facility] [address], [address] [place] [address] 1. Motrin as needed for pain 2. Follow up with orthopedic provider or primary care provider 3. Return to ED as needed as discussed - My Orders Last 24 Hours: My Active Orders 03/26/18 21:21 Cervical Spine 2V or 3V [CR] Stat Chest 1V Frontal [CR] Stat - Assessment/Plan Last 24 Hours: My Active Orders 03/26/18 21:21 Cervical Spine 2V or 3V [CR] Stat Chest 1V Frontal [CR] Stat
[2018-03-26 22:35] VITALS: BP 137/87
--- NOTE | 2018-03-27 13:54 | CR ---
EXAM DATE: 03/26/18 PATIENT'S AGE: 42 Patient: ARAM PAGE Facility: [place], [place] Site . Site : 1975 Study: XRay Chest [id number]/18/2018 9:58:14 PM Ordering Physician: Doctor Montalvo Final Report: Indication: Pain, shortness of breath, right rib tenderness Technique: Chest 1 view Comparison: None Findings/Impression: Normal cardiomediastinal silhouette. Clear lungs and pleural spaces. No acute osseous abnormality. Dictated by Tara Carver MD @ Mar 26 2018 10:04PM (Electronic Signature) Report Signed by Proxy. MEDHAT
--- NOTE | 2018-03-27 13:55 | CR ---
EXAM DATE: 03/26/18 PATIENT'S AGE: 42 Patient: ARAM PAGE Facility: [place], [place] Site . Site : 1975 Study: XRay Spine Cervical [id number]/18/2018 9:58:53 PM Ordering Physician: Doctor Montalvo Final Report: INDICATION: Numbness in right hand TECHNIQUE: Cervical spine 3 view. COMPARISON: None FINDINGS: S/p anterior fusion with plate and vertebral body screws at the C5-C6 level. Disc graft material also identified at this level. No hardware complication identified. Anatomic alignment. No fracture, subluxation, or bone erosion. IMPRESSION: No acute abnormality. Dictated by Tara Carver MD @ Mar 26 2018 10:06PM (Electronic Signature) Report Signed by Proxy. MEDHAT
== END 2018-03-26 22:25 | disposition home or self-care (01) ==
LOC: MW.ED 20:50
DX: R20.2 Paresthesia of skin (principal); R07.89 Other chest pain; R10.2 Pelvic and perineal pain; E11.9 Type 2 diabetes mellitus without complications; F41.9 Anxiety disorder, unspecified; F32.9 Major depressive disorder, single episode, unspecified; Z79.899 Other long term (current) drug therapy; Z88.8 Allergy status to other drugs, medicaments and biological substances; Z79.4 Long term (current) use of insulin; Z91.09 Other allergy status, other than to drugs and biological substances
CPT/HCPCS: 71045; 71045-26; 72040; 72040-26; 81025; 99284

== ENCOUNTER 2018-04-01 14:41 | Emergency (ER) | payer BC ==
[2018-04-01] MEDS ORDERED: Sodium Chloride 0.9% 2.5 ML Syringe FLUSH PRN (15:05)
[2018-04-01] MEDS ORDERED: Sodium Chloride 0.9% 10 ML Syringe FLUSH PRN (15:05)
[2018-04-01] MEDS ORDERED: Sodium Chloride 0.9% 1,000 ML IV ONE (15:05)
[2018-04-01] MEDS ORDERED: Ketorolac 30 MG/ML SDV IVPUSH ONE (15:12)
--- NOTE | 2018-04-01 15:28 | EDM.PDOC ---
ED HPI GENERAL MEDICAL PROBLEM - General Chief Complaint: Abdominal Pain Stated Complaint: PELVIC PAIN Time Seen by Provider: 04/01/18 15:24 Source of Information: Reports: Patient History Limitations: Reports: No Limitations - History of Present Illness INITIAL COMMENTS - FREE TEXT/NARRATIVE: HISTORY AND PHYSICAL: History of present illness: Patient is a 42-year-old female here with complaint of pelvic pain. She states she has had mild pain for the past 2 weeks but today has worsened. She states it is a constant pressure. She reports she did go to the bathroom and there was a small amount of blood on the toilet paper which she thinks may have been vaginal. She denies any fevers, chills, vomiting, diarrhea, dysuria, hematuria, melena, hematochezia. Patient reports LMP 5 weeks ago. Patient has history of appendectomy, right salpingectomy, and cholecystectomy. Review of systems: As per history of present illness and below otherwise all systems reviewed and negative. Past medical history: As per history of present illness and as reviewed below otherwise noncontributory. Surgical history: As per history of present illness and as reviewed below otherwise noncontributory. Social history: No reported history of drug or alcohol abuse. Family history: As per history of present illness and as reviewed below otherwise noncontributory. Physical exam: General: Patient sitting comfortably in no acute distress and nontoxic appearing HEENT: Atraumatic, normocephalic, pupils reactive, negative for conjunctival pallor or scleral icterus, mucous membranes moist, throat clear, neck supple, nontender, trachea midline. No meningeal signs. Lungs: Clear to auscultation, breath sounds equal bilaterally, chest nontender. Heart: S1S2, regular, negative for clicks, rubs, or overt murmur. Abdomen: Mild suprapubic and bilateral adnexal tenderness to palpation. Bowel sounds normal. Soft, nondistended. Negative for masses or hepatosplenomegaly. Negative for costovertebral tenderness. Pelvis: Stable nontender. Genitourinary: Deferred. Rectal: Deferred. Extremities: Atraumatic, negative for cords or calf pain. Neurovascular unremarkable. Neuro: Awake, alert, oriented. Cranial nerves II through XII unremarkable. Cerebellum unremarkable. Motor and sensory unremarkable throughout. Exam nonfocal. Notes: Diagnostics: CBC, CMP, UA, UC, urine hcg, pelvic US Therapeutics: 1L Normal Saline IV 30mg Toradol IV Prescriptions: None Impression: Ovarian cysts Plan: 1. Motrin or tylenol as needed 2. Follow up with General Utility Maintenance Repairer 3. Return to ED as needed as discussed Definitive disposition and diagnosis as appropriate pending reevaluation and review of above. abd Pain Score (Numeric/FACES): 7 - Related Data Allergies Allergy/AdvReac Type Severity Reaction Status Date / Time adhesive tape Allergy Rash Verified 04/01/18 14:50 metformin Allergy Other Verified 04/01/18 14:50 metoclopramide HCl Allergy Anxiety Verified 04/01/18 14:50 [From Reglan] Home Meds: Home Meds Escitalopram [Lexapro] 30 mg PO DAILY 05/28/15 [History] busPIRone [Buspar] 15 mg PO TID 05/28/15 [History] Amitriptyline [Elavil] 50 mg PO BEDTIME 08/09/16 [History] Verapamil HCl [Verapamil Sr] 120 mg PO WITHBREAKFAST 08/09/16 [History] tiZANidine 6 mg PO TID PRN 08/09/16 [History] Insulin Aspart [NovoLOG] 40 - 50 units SUBCUT ASDIRECTED 05/24/17 [History] hydrOXYzine pamoate [Hydroxyzine Pamoate] 25 mg PO QID PRN 05/24/17 [History] Cholecalciferol (Vitamin D3) [Vitamin D3] 50 mcg PO DAILY 03/26/18 [History] Levothyroxine Sodium [Synthroid] 0.15 mg PO DAILY 03/26/18 [History] Multivitamin [Multi-Day Vitamins] 1 tab PO DAILY 03/26/18 [History] Past Medical History - Past Health History Medical/Surgical History: Denies Medical/Surgical History HEENT History: Reports: Other (See Below) Other HEENT History: double vision with high blood sugars and migraines and blurriness with migraines Cardiovascular History: Reports: None Respiratory History: Reports: None Gastrointestinal History: Reports: GERD, Other (See Below) Other Gastrointestinal History: hx barretts esophagus Genitourinary History: Reports: None, Diabetic Nephropathy, Other (See Below) Other Genitourinary History: Interstitial cystitis- stable COIL CLEANER History: Reports: Ectopic , , Spontaneous Musculoskeletal History: Reports: Back Pain, Chronic, Neck Pain, Chronic, Other (See Below) Other Musculoskeletal History: degenerative disk disease Neurological History: Reports: Migraines Psychiatric History: Reports: Anxiety, Depression Endocrine/Metabolic History: Reports: Diabetes, Type II, Hypothyroidism, Obesity /BMI 30+ Other Endocrine/Metabolic History: hypothyroidism, type II diabetic has insulin pump Hematologic History: Reports: B12 Deficiency Other Hematologic History: B12 deficiency following gastric bypass, controlled with multi-vitamins Immunologic History: Reports: None Oncologic (Cancer) History: Reports: None Dermatologic History: Reports: None - Infectious Disease History Infectious Disease History: Reports: Chicken Pox, Measles, Mumps - Past Surgical History Head Surgeries/Procedures: Reports: None HEENT Surgical History: Reports: Adenoidectomy, Tonsillectomy, Other (See Below) Other HEENT Surgeries/Procedures: jaw, right tympanoplasty x2 GI Surgical History: Reports: Appendectomy, Bariatric Procedure, Cholecystectomy , Colonoscopy, EGD, Other (See Below) Other GI Surgeries/Procedures: gastric bypass. Linx surgery for GERD Female Surgical History: Reports: Other (See Below) Other Female Surgeries/Procedures: infertility, ruptured ectopic and miscarriages, last one in July 2015 Neurological Surgical History: Reports: Lumbar Spine Other Neurological Surgeries/Procedures: c5-c6 fusion Other Musculoskeletal Surgeries/Procedures:: fusion c5-c6 & l4 l5 Social & Family History - Family History Family Medical History: Noncontributory HEENT: Reports: None Cardiac: Reports: CAD, Heart Failure, Hypertension, [place], Pacemaker Respiratory: Reports: None GI: Reports: None : Reports: None OBGYN: Reports: None Musculoskeletal: Reports: None Neurological: Reports: Migraines Psychiatric: Reports: Anxiety, OCD Endocrine/Metabolic: Reports: Diabetes, type II, Hypoparathyroidism Oncologic: Reports: Breast - Tobacco Use Smoking Status *Q: Current Every Day Smoker Years of Tobacco use: 10 Packs/Tins Daily: 0.6 Second Hand Smoke Exposure: Yes - Caffeine Use Caffeine Use: Reports: Coffee, Energy Drinks, Soda, Tea Caffeine Use Comment: 1cup/day - Recreational Drug Use Recreational Drug Use: No ED ROS GENERAL - Review of Systems Review Of Systems: ROS reveals no pertinent complaints other than HPI. ED EXAM, GI/ABD - Physical Exam Exam: See Below (see dictation) Course - Vital Signs Last Recorded V/S: Last Vital Signs Temp 36.8 C 04/01/18 14:51 Pulse 81 04/01/18 14:51 Resp 16 04/01/18 14:51 BP 143/71 H 04/01/18 14:51 Pulse Ox 95 04/01/18 14:51 - Orders/Labs/Meds Orders: Active Orders 24 hr Category Date Time Status CULTURE URINE [RM] Stat Lab 04/01/18 15:22 Received Sodium Chloride 0.9% [Saline Flush] Med 04/01/18 15:05 Active 10 ml FLUSH ASDIRECTED PRN Sodium Chloride 0.9% [Saline Flush] Med 04/01/18 15:05 Active 2.5 ml FLUSH ASDIRECTED PRN Saline Lock Insert [OM.PC] Stat Oth 04/01/18 15:05 Ordered Medication Orders Sodium Chloride (Saline Flush) 10 ml FLUSH ASDIRECTED PRN PRN Reason: Keep Vein Open Last Admin: 04/01/18 15:20 Dose: 10 ml Sodium Chloride (Saline Flush) 2.5 ml FLUSH ASDIRECTED PRN PRN Reason: Keep Vein Open Last Admin: 04/01/18 15:20 Dose: 2.5 ml Labs: Laboratory Tests 04/01/18 04/01/18 04/01/18 Range/Units 15:14 15:14 15:22 WBC 7.00 (4.0-11.0) K/uL RBC 4.71 (4.30-5.90) M/uL Hgb 14.8 (12.0-16.0) g/dL Hct 42.3 (36.0-46.0) % MCV 89.8 (80.0-98.0) fL MCH 31.4 (27.0-32.0) pg MCHC 35.0 (31.0-37.0) g/dL RDW Std Deviation 41.0 (28.0-62.0) fl RDW Coeff of Denise 13 (11.0-15.0) % Plt Count 226 (150-400) K/uL MPV 9.40 (7.40-12.00) fL Neut % (Auto) 54.4 (48.0-80.0) % Lymph % (Auto) 28.7 (16.0-40.0) % [place] % (Auto) 9.1 (0.0-15.0) % Eos % (Auto) 7.1 H (0.0-7.0) % Baso % (Auto) 0.7 (0.0-1.5) % Neut # (Auto) 3.8 (1.4-5.7) K/uL Lymph # (Auto) 2.0 (0.6-2.4) K/uL [place] # (Auto) 0.6 (0.0-0.8) K/uL Eos # (Auto) 0.5 (0.0-0.7) K/uL Baso # (Auto) 0.1 (0.0-0.1) K/uL Nucleated RBC % 0.0 /100WBC Nucleated RBCs # 0 K/uL Sodium 139 (136-145) mmol/L Potassium 4.3 (3.5-5.1) mmol/L Chloride 105 (98-107) mmol/L Carbon Dioxide 27.3 (21.0-32.0) mmol/L BUN 9 (7.0-18.0) mg/dL Creatinine 0.8 (0.6-1.0) mg/dL Est Cr Clr Drug Dosing 95.41 mL/min Estimated GFR (MDRD) > 60.0 ml/min Glucose 131 H (74-106) mg/dL Calcium 9.0 (8.5-10.1) mg/dL Total Bilirubin 0.5 (0.2-1.0) mg/dL AST 16 (15-37) IU/L ALT 23 (14-63) IU/L Alkaline Phosphatase 73 (46-116) U/L Total Protein 6.9 (6.4-8.2) g/dL Albumin 3.5 (3.4-5.0) g/dL Globulin 3.4 (2.0-3.5) g/dL Albumin/Globulin Ratio 1.0 L (1.3-2.8) Lipase 58 L (73-393) U/L Urine Color YELLOW Urine Appearance CLEAR Urine pH 6.5 (5.0-8.0) Ur Specific [place] 1.015 (1.001-1.035) Urine Protein NEGATIVE (NEGATIVE) mg/dL Urine Glucose (UA) NEGATIVE (NEGATIVE) mg/dL Urine Ketones TRACE H (NEGATIVE) mg/dL Urine Occult Blood NEGATIVE (NEGATIVE) Urine Nitrite NEGATIVE (NEGATIVE) Urine Bilirubin NEGATIVE (NEGATIVE) Urine Urobilinogen 1.0 (<2.0) EU/dL Ur Leukocyte Esterase NEGATIVE (NEGATIVE) Urine RBC NONE SEEN (0-2/HPF) Urine WBC 0-2 (0-5/HPF) Ur Epithelial Cells FEW (NONE-FEW) Amorphous Sediment NOT SEEN (NEGATIVE) Urine Bacteria FEW (NEGATIVE) Urine Mucus NOT SEEN (NONE-MOD) Urine HCG, Qual (NEGATIVE) 04/01/18 Range/Units 15:22 WBC (4.0-11.0) K/uL RBC (4.30-5.90) M/uL Hgb (12.0-16.0) g/dL Hct (36.0-46.0) % MCV (80.0-98.0) fL MCH (27.0-32.0) pg MCHC (31.0-37.0) g/dL RDW Std Deviation (28.0-62.0) fl RDW Coeff of Denise (11.0-15.0) % Plt Count (150-400) K/uL MPV (7.40-12.00) fL Neut % (Auto) (48.0-80.0) % Lymph % (Auto) (16.0-40.0) % [place] % (Auto) (0.0-15.0) % Eos % (Auto) (0.0-7.0) % Baso % (Auto) (0.0-1.5) % Neut # (Auto) (1.4-5.7) K/uL Lymph # (Auto) (0.6-2.4) K/uL [place] # (Auto) (0.0-0.8) K/uL Eos # (Auto) (0.0-0.7) K/uL Baso # (Auto) (0.0-0.1) K/uL Nucleated RBC % /100WBC Nucleated RBCs # K/uL Sodium (136-145) mmol/L Potassium (3.5-5.1) mmol/L Chloride (98-107) mmol/L Carbon Dioxide (21.0-32.0) mmol/L BUN (7.0-18.0) mg/dL Creatinine (0.6-1.0) mg/dL Est Cr Clr Drug Dosing mL/min Estimated GFR (MDRD) ml/min Glucose (74-106) mg/dL Calcium (8.5-10.1) mg/dL Total Bilirubin (0.2-1.0) mg/dL AST (15-37) IU/L ALT (14-63) IU/L Alkaline Phosphatase (46-116) U/L Total Protein (6.4-8.2) g/dL Albumin (3.4-5.0) g/dL Globulin (2.0-3.5) g/dL Albumin/Globulin Ratio (1.3-2.8) Lipase (73-393) U/L Urine Color Urine Appearance Urine pH (5.0-8.0) Ur Specific [place] (1.001-1.035) Urine Protein (NEGATIVE) mg/dL Urine Glucose (UA) (NEGATIVE) mg/dL Urine Ketones (NEGATIVE) mg/dL Urine Occult Blood (NEGATIVE) Urine Nitrite (NEGATIVE) Urine Bilirubin (NEGATIVE) Urine Urobilinogen (<2.0) EU/dL Ur Leukocyte Esterase (NEGATIVE) Urine RBC (0-2/HPF) Urine WBC (0-5/HPF) Ur Epithelial Cells (NONE-FEW) Amorphous Sediment (NEGATIVE) Urine Bacteria (NEGATIVE) Urine Mucus (NONE-MOD) Urine HCG, Qual NEGATIVE (NEGATIVE) Meds: Medications Generic Name Dose Route Start Last Admin Trade Name Freq PRN Reason Stop Dose Admin Sodium Chloride 10 ml 04/01/18 15:05 04/01/18 15:20 Saline Flush FLUSH 10 ml ASDIRECTED PRN Administration Keep Vein Open Sodium Chloride 2.5 ml 04/01/18 15:05 04/01/18 15:20 Saline Flush FLUSH 2.5 ml ASDIRECTED PRN Administration Keep Vein Open Discontinued Medications Generic Name Dose Route Start Last Admin Trade Name Freq PRN Reason Stop Dose Admin Sodium Chloride 1,000 mls @ 999 mls/hr 04/01/18 15:05 04/01/18 15:20 Normal Saline IV 04/01/18 16:05 999 mls/hr STAT ONE Administration Ketorolac Tromethamine 30 mg 04/01/18 15:12 04/01/18 15:19 Toradol IVPUSH 04/01/18 15:13 30 mg ONETIME ONE Administration Departure - Departure Time of Disposition: 16:19 Disposition: Home, Self-Care 01 Condition: Good Clinical Impression: Ovarian cyst - Discharge Information Referrals: PCP,None [Primary Care Provider] - Forms: ED Department Discharge Additional Instructions: The following information is given to patients seen in the emergency department who are being discharged to home. This information is to outline your options for follow-up care. We provide all patients seen in our emergency department with a follow-up referral. The need for follow-up, as well as the timing and circumstances, are variable depending upon the specifics of your emergency department visit. If you don't have a primary care physician on staff, we will provide you with a referral. We always advise you to contact your personal physician following an emergency department visit to inform them of the circumstance of the visit and for follow-up with them and/or the need for any referrals to a consulting specialist. The emergency department will also refer you to a specialist when appropriate. This referral assures that you have the opportunity for follow-up care with a specialist. All of these measure are taken in an effort to provide you with optimal care, which includes your follow-up. Under all circumstances we always encourage you to contact your private physician who remains a resource for coordinating your care. When calling for follow-up care, please make the office aware that this follow-up is from your recent emergency room visit. If for any reason you are refused follow-up, please contact the [facility] Emergency Department at and asked to speak to the emergency department charge nurse. [facility] - [facility] [address] [place] [id number] 1. Motrin or tylenol as needed 2. Follow up with General Utility Maintenance Repairer 3. Return to ED as needed as discussed - My Orders Last 24 Hours: My Active Orders 04/01/18 15:05 Sodium Chloride 0.9% [Saline Flush] 10 ml FLUSH ASDIRECTED PRN Sodium Chloride 0.9% [Saline Flush] 2.5 ml FLUSH ASDIRECTED PRN Saline Lock Insert [OM.PC] Stat 04/01/18 15:22 CULTURE URINE [RM] Stat - Assessment/Plan Last 24 Hours: My Active Orders 04/01/18 15:05 Sodium Chloride 0.9% [Saline Flush] 10 ml FLUSH ASDIRECTED PRN Sodium Chloride 0.9% [Saline Flush] 2.5 ml FLUSH ASDIRECTED PRN Saline Lock Insert [OM.PC] Stat 04/01/18 15:22 CULTURE URINE [RM] Stat
[2018-04-01 15:47] LABS: CHLORIDE,CL 105 mmol/L (98-107); SODIUM,NA 139 mmol/L (136-145)
--- NOTE | 2018-04-01 16:06 | US ---
EXAMINATION: Transvaginal pelvic ultrasound HISTORY: Pain COMPARISON: CT abdomen and pelvis dated 09/04/2016. TECHNIQUE: Grayscale, color, and spectral Doppler imaging obtained transvaginally. FINDINGS: The uterus is normal in size, contour, and echogenicity. The endometrial stripe thickness m easures 7 mm. Several small nabothian cysts are noted. Both the left and right ovaries are normal in size, contour, and echogenicity. Color and spectral Dop pler flow bilaterally. Several mildly complex ovarian cysts are noted. These measure up to 2 cm. IMPRESSION: 1. No acute findings noted. 2. Several small complex ovarian cysts noted bilaterally. Follow-up in 2 menstrual cycles may be bene ficial.
[2018-04-01 16:41] VITALS: BP 133/82
== END 2018-04-01 16:42 | disposition home or self-care (01) ==
LOC: MW.ED 14:41
DX: N83.202 Unspecified ovarian cyst, left side (principal); N83.201 Unspecified ovarian cyst, right side; E03.9 Hypothyroidism, unspecified; E11.21 Type 2 diabetes mellitus with diabetic nephropathy; Z88.8 Allergy status to other drugs, medicaments and biological substances; Z91.048 Other nonmedicinal substance allergy status; Z79.4 Long term (current) use of insulin; Z79.899 Other long term (current) drug therapy
CPT/HCPCS: 36415; 76856; 80053; 81001; 81025; 83690; 85025; 87086; 96361; 96374; 99284; J1885; J7040; 99283